=== PATIENT | male | born 1965 | race Caucasian/White ===

== ENCOUNTER 2017-01-13 17:20 | Emergency (ER) | payer MEDICARE ==
--- NOTE | 2017-01-13 18:59 | Emergency Department Record ---
History of Present Illness - General Mode of Arrival: Ambulatory - History of Present Illness Onset/Timin -: Hour(s) Place: Home Context: Sharp object use Associated Symptoms: None Treatments Prior to Arrival: Bandage - Related Data Hx Tetanus Toxoid Vaccination: Yes Year of Tetanus Vaccination: unsure <Seng Hughes - Last Filed: 01/13/17 18:58> - General Source: Patient Mode of Arrival: Ambulatory Limitations: No limitations - History of Present Illness Initial Commments: cut on something in garage Onset/Timin -: Hour(s) Extremity Location: Right: Hand Context: Accidental Associated Symptoms: None Treatments Prior to Arrival: Bandage - [place] Coma Scale Eye Response: (4) Open spontaneously <Lorna Lu - Last Filed: 01/13/17 19:53> - General Chief Complaint: Laceration(s) Stated Complaint: LACERATION ON RT HAND MIDDLE FINGER Time Seen by Provider: 01/13/17 18:58 Travel Screening - Travel/Exposure Within Last 30 Days Have you traveled within the last 30 days?: No <Seng Hughes - Last Filed: 01/13/17 18:58> Review of Systems Reviewed: No additional complaints except as noted below Constitutional: Reports: As per HPI. Denies: Chills, Fever, Malaise, Night sweats, Weakness, Weight change Eyes: Reports: As per HPI. Denies: Eye discharge, Eye pain, Photophobia, Vision change ENT: Reports: As per HPI. Denies: Congestion, Dental pain, Ear pain, Epistaxis , Hearing loss, Throat pain Respiratory: Reports: As per HPI. Denies: Cough, Dyspnea, Hemoptysis, Stridor, Wheezes Cardiovascular: Reports: As per HPI. Denies: Arrhythmia, Chest pain, Dyspnea on exertion, Edema, Murmurs, Orthopnea, Palpitations, Paroxysmal nocturnal dyspnea, Rheumatic Fever, Syncope Endocrine: Reports: As per HPI. Denies: Fatigue, Heat or cold intolerance, Polydipsia, Polyuria Gastrointestinal: Reports: As per HPI. Denies: Abdominal pain, Constipation, Diarrhea, Hematemesis, Hematochezia, Melena, Nausea, Vomiting Genitourinary: Reports: As per HPI. Denies: Dysuria, Frequency, Hematuria, Incontinence, Retention, Testicular pain, Testicular mass, Urgency Musculoskeletal: Reports: As per HPI. Denies: Arthralgia, Back pain, Gout, Joint swelling, Myalgia, Neck pain Skin: Reports: As per HPI. Denies: Bruising, Change in color, Change in hair/ nails, Lesions, Pruritus, Rash Neurological: Reports: As per HPI. Denies: Abnormal gait, Confusion, Headache, Numbness, Paresthesias, Seizure, Tingling, Tremors, Vertigo, Weakness Psychiatric: Reports: As per HPI. Denies: Anxiety, Auditory hallucinations, Depression, Homicidal thoughts, Suicidal thoughts, Visual hallucinations Hematological/Lymphatic: Reports: As per HPI. Denies: Anemia, Blood Clots, Easy bleeding, Easy bruising, Swollen glands <Lorna Lu - Last Filed: 01/13/17 19:53> Past Medical History - SOCIAL HISTORY Smoking Status: Never smoker Alcohol Use: Occassional Drug Use: None - RESPIRATORY Hx Respiratory Disorders: No - CARDIOVASCULAR Hx Cardio Disorders: Yes Hx Hypertension: Yes - NEURO Hx Neuro Disorders: No - GI Hx GI Disorders: No - Hx Genitourinary Disorders: No - ENDOCRINE Hx Endocrine Disorders: No - MUSCULOSKELETAL Hx Musculoskeletal Disorders: Yes - PSYCH Hx Psych Problems: No - HEMATOLOGY/ONCOLOGY Hx Hematology/Oncology Disorders: No <Seng Hughes A - Last Filed: 01/13/17 18:58> Family Medical History Any Significant Family History?: No <Seng Hughes - Last Filed: 01/13/17 18:58> Any Significant Family History?: No <Lorna Lu - Last Filed: 01/13/17 19:53> Physical Exam - General General Appearance: Alert, Oriented x3, Cooperative, No acute distress - Head Head exam: Normal inspection - Eye Eye exam: Normal appearance, PERRL, EOMI Pupils: Normal accommodation - ENT ENT exam: Normal exam, Mucous membranes moist, Normal external ear exam, Normal orophraynx, TM's normal bilaterally Ear exam: Normal external inspection. negative: External canal tenderness Nasal Exam: Normal inspection. negative: Discharge, Sinus tenderness Mouth exam: Normal external inspection, Tongue normal Teeth exam: Normal inspection. negative: Dental caries Throat exam: Normal inspection. negative: Tonsillar erythema, Tonsillar exudate - Neck Neck exam: Normal inspection, Full ROM. negative: Tenderness - Respiratory Respiratory exam: Normal lung sounds bilaterally. negative: Respiratory distress - Cardiovascular Cardiovascular Exam: Regular rate, Normal rhythm, Normal heart sounds - GI/Abdominal GI/Abdominal exam: Soft, Normal bowel sounds. negative: Tenderness - Rectal Rectal exam: Deferred - exam: Deferred - Extremities Extremities exam: Normal inspection, Full ROM, Normal capillary refill. negative: Tenderness Image of Hand: 1 - 2cm lac - Back Back exam: Reports: Normal inspection, Full ROM. Denies: Muscle spasm, Rash noted, Tenderness - Neurological Neurological exam: Alert, CN II-XII intact, Normal gait, Oriented X3 - Psychiatric Psychiatric exam: Normal affect, Normal mood - Skin Skin exam: Dry, Intact, Normal color, Warm <Lorna Lu - Last Filed: 01/13/17 19:53> Course Vital Signs 01/13/17 18:51 Temperature 98.3 F Pulse Rate 100 H Respiratory 18 Rate Blood Pressure 165/136 Pulse Ox 98 <Seng Hughes - Last Filed: 01/13/17 18:58> Vital Signs 01/13/17 18:51 Temperature 98.3 F Pulse Rate 100 H Respiratory 18 Rate Blood Pressure 165/136 Pulse Ox 98 <Lorna Lu - Last Filed: 01/13/17 19:53> Disposition <Seng Hughes - Last Filed: 01/13/17 18:58> Disposition: Discharge <Lorna Lu - Last Filed: 01/13/17 19:53> Clinical Impression: Laceration of finger Qualifiers: Encounter type: initial encounter Qualified Code(s): S61.219A - Laceration without foreign body of unspecified finger without damage to nail, initial encounter Hypertension Qualifiers: Hypertension type: essential hypertension Qualified Code(s): I10 - Essential ( primary) hypertension Disposition: Home, Self-Care Condition: (1) Good Instructions: Laceration (ED), Suture Care (ED), Heart Healthy Diet (ED), Hypertension (ED) Additional Instructions: sutures out in 8 days. follow up with family doctor. return sooner if worse. recheck blood pressure daily for next week and keep log. Forms: Patient Portal Access
== END 2017-01-13 19:58 | disposition home or self-care (01) ==
LOC: ER 17:20
DX: S61.212A Laceration without foreign body of right middle finger without damage to nail, initial encounter (principal); I10 Essential (primary) hypertension; W45.8XXA Other foreign body or object entering through skin, initial encounter; Y92.008 Other place in unspecified non-institutional (private) residence as the place of occurrence of the external cause
CPT/HCPCS: 12001; 99283

== ENCOUNTER 2018-04-04 05:13 | Emergency (ER) | payer MEDICARE ==
--- NOTE | 2018-04-04 05:41 | Emergency Department Record ---
History of Present Illness - General Chief complaint: Lower Extremity Pain Stated complaint: TOE PAIN Time Seen by Provider: 04/04/18 05:30 Source: Patient Mode of Arrival: Ambulatory - History of Present Illness Initial comments: The patient woke up with left great toe pain yesterday morning.He denies injuring it. He states he doesn't have much feeling in his feet since his back surgery and back problems, but this does hurt quite a bit. Onset/Timin -: Days(s) Location: Left, Other Severity scale (1-10): 10 Quality: Sharp, Stabbing Consistency: Constant Improves with: Nothing Worsens with: Nothing Associated Symptoms: Denies other symptoms - Related Data Previous Rx's Medication Instructions Recorded Cephalexin [Keflex] 500 mg PO QID #40 cap 04/04/18 Hydrocodone/Acetaminophen [[place] 1 each PO RESP.Q6H #10 tablet 04/04/18 5-325 Tablet] Indomethacin [Indocin] 50 mg PO TID #21 cap 04/04/18 Allergies Allergy/AdvReac Type Severity Reaction Status Date / Time amlodipine besylate AdvReac Intermediate chest Unverified 03/31/18 11:17 [From [facility]] [facility] Travel Screening - Travel/Exposure Within Last 30 Days Have you traveled within the last 30 days?: No Review of Systems Reviewed: No additional complaints except as noted below Constitutional: Reports: As per HPI. Denies: Chills, Fever, Malaise, Night sweats, Weakness, Weight change Eyes: Reports: As per HPI. Denies: Eye discharge, Eye pain, Photophobia, Vision change ENT: Reports: As per HPI. Denies: Congestion, Dental pain, Ear pain, Epistaxis , Hearing loss, Throat pain Respiratory: Reports: As per HPI. Denies: Cough, Dyspnea, Hemoptysis, Stridor, Wheezes Cardiovascular: Reports: As per HPI. Denies: Arrhythmia, Chest pain, Dyspnea on exertion, Edema, Murmurs, Orthopnea, Palpitations, Paroxysmal nocturnal dyspnea, Rheumatic Fever, Syncope Endocrine: Reports: As per HPI. Denies: Fatigue, Heat or cold intolerance, Polydipsia, Polyuria Gastrointestinal: Reports: As per HPI. Denies: Abdominal pain, Constipation, Diarrhea, Hematemesis, Hematochezia, Melena, Nausea, Vomiting Genitourinary: Reports: As per HPI. Denies: Dysuria, Frequency, Hematuria, Incontinence, Retention, Testicular pain, Testicular mass, Urgency Musculoskeletal: Reports: As per HPI. Denies: Arthralgia, Back pain, Gout, Joint swelling, Myalgia, Neck pain Skin: Reports: As per HPI. Denies: Bruising, Change in color, Change in hair/ nails, Lesions, Pruritus, Rash Neurological: Reports: As per HPI. Denies: Abnormal gait, Confusion, Headache, Numbness, Paresthesias, Seizure, Tingling, Tremors, Vertigo, Weakness Psychiatric: Reports: As per HPI. Denies: Anxiety, Auditory hallucinations, Depression, Homicidal thoughts, Suicidal thoughts, Visual hallucinations Hematological/Lymphatic: Reports: As per HPI. Denies: Anemia, Blood Clots, Easy bleeding, Easy bruising, Swollen glands Past Medical History - SOCIAL HISTORY Smoking Status: Never smoker Alcohol Use: None Drug Use: None - RESPIRATORY Hx Respiratory Disorders: No - CARDIOVASCULAR Hx Cardio Disorders: Yes Hx Hypertension: Yes - NEURO Hx Neuro Disorders: No - GI Hx GI Disorders: No - Hx Genitourinary Disorders: No - ENDOCRINE Hx Endocrine Disorders: No - MUSCULOSKELETAL Hx Musculoskeletal Disorders: Yes - PSYCH Hx Psych Problems: No - HEMATOLOGY/ONCOLOGY Hx Hematology/Oncology Disorders: No Family Medical History Any Significant Family History?: No Physical Exam - General General Appearance: Alert, Oriented x3, Cooperative, Mild distress - Head Head exam: Normal inspection - Eye Eye exam: Normal appearance, PERRL Pupils: Normal accommodation - ENT ENT exam: Normal exam, Mucous membranes moist, Normal external ear exam, Normal orophraynx, TM's normal bilaterally Ear exam: Normal external inspection. negative: External canal tenderness Nasal Exam: Normal inspection. negative: Discharge, Sinus tenderness Mouth exam: Normal external inspection, Tongue normal Teeth exam: Normal inspection. negative: Dental caries Throat exam: Normal inspection. negative: Tonsillar erythema, Tonsillar exudate - Neck Neck exam: Normal inspection, Full ROM. negative: Tenderness - Respiratory Respiratory exam: Normal lung sounds bilaterally. negative: Respiratory distress - Cardiovascular Cardiovascular Exam: Regular rate, Normal rhythm, Normal heart sounds - GI/Abdominal GI/Abdominal exam: Soft, Normal bowel sounds. negative: Tenderness - Rectal Rectal exam: Deferred - exam: Deferred - Extremities Extremities exam: Normal inspection, Full ROM, Normal capillary refill, Tenderness (left great toes with erythema, warmth and tenderness. Erythema includes a proximal lymphangits up his dorsal foot which was marked with a pen.) - Back Back exam: Reports: Normal inspection, Full ROM. Denies: Muscle spasm, Rash noted, Tenderness - Neurological Neurological exam: Alert, Normal gait, Oriented X3, Reflexes normal - Psychiatric Psychiatric exam: Normal affect, Normal mood - Skin Skin exam: Dry, Intact, Normal color, Warm Course Vital Signs 04/04/18 05:19 Temperature 98.6 F Pulse Rate [ 79 Pulse Ox Probe] Respiratory 20 Rate Blood Pressure 151/100 [Left Arm] Pulse Ox 97 - Reevaluation(s) Reevaluation #1: The patient's pain is controlled and he states he is used to chronic pain at all times due to diffuse arthritis of the spine for many years. He lives alone and is disabled. He states he will elevate his foot and take his medications as directed. He has a PCP to recheck in 12- 24 hours, and will return here if he worsens. The red line on the top of his foot he will watch and return if it goes up his leg, if he develops fevers, chills, or is in other regads worsening. 04/04/18 06:35 Medical Decision Making - Data Complexity MDM Data: Labs Ordered and/or Reviewed, X-Ray Ordered and/or Reviewed (Left foot great toe xray: no acute abnormality, minimal chronic changes to great toe) - Lab Data Result diagrams: 04/04/18 05:40 04/04/18 05:40 Disposition Disposition: Discharge Clinical Impression: Gouty arthritis of left great toe, Cellulitis of great toe, left Disposition: Home, Self-Care Condition: (2) Stable Instructions: Gout (ED), Cellulitis (ED) Additional Instructions: Take indocin with food as directed. Take keflex as directed until gone. Recheck 24 hours with PCP. Return here if infection spreads up your leg. Keflex 500 four times daily for 10 days. Indocin with food as directed. Elevate leg above heart. No to minimal ambulation. Prescriptions: Cephalexin [Keflex] 500 mg PO QID #40 cap Hydrocodone/Acetaminophen [[place] 5-325 Tablet] 1 each PO RESP.Q6H #10 tablet Indomethacin [Indocin] 50 mg PO TID #21 cap Forms: Patient Portal Access Quality - Quality Measures Quality Measures: N/A - Blood Pressure Screening Does Patient Have Any of the Following: No Blood Pressure Classification: Hypertensive Reading Systolic Measurement: 151 Diastolic Measurement: 100 Screening for High Blood Pressure: Patient Exclusion, Hx of HTN [[id number]]
[2018-04-04 05:51] LABS: BASO % 0.5 % (0-6); EOS % 1.2 % (0-6); GRAN % 58.5 % (47-80); HEMATOCRIT 43.4 % (42.0-52.0); HEMOGLOBIN 15.4 gm/dl (14.0-18.0); LYMPH % 31.1 % (16-45); MEAN CELL VOLUME 91.9 fl (81-97); MEAN CORPUSCULAR HEMOGLOBIN 32.6 pg (27-33); MEAN CORPUSCULAR HGB CONC 35.5 g/dl (32-36); MEAN PLATELET VOLUME 9.7 fl (7.4-10.4); MONO % 8.7 % (0-9); PLATELET COUNT 257 K/uL (130-400); RED BLOOD COUNT 4.72 M/uL (4.40-5.70); RED CELL DISTRIBUTION WIDTH 12.1 % (11.5-14.5); WHITE BLOOD COUNT W/O DIFF 8.5 K/uL (4.2-12.2)
[2018-04-04 05:58] LABS: BLOOD UREA NITROGEN 15 mg/dL (6-20)
[2018-04-04 05:59] LABS: CREATININE 0.8 mg/dL (0.7-1.2); EST GLOMERULAR FILTRATION RATE > 60 mL/min; TOTAL PROTEIN 7.1 g/dL (6.6-8.7)
[2018-04-04 06:01] LABS: GLUCOSE,RANDOM 125 mg/dL (74-109)
[2018-04-04 06:04] LABS: ALB/GLOB RATIO 1.5 (1.1-1.8); ALBUMIN 4.3 g/dL (4.0-5.0); ALKALINE PHOSPHATASE 58 U/L (40-129); ALT/SGPT 21 U/L (<41); AST/SGOT 19 U/L (10.0-50.0)
[2018-04-04] MEDS: INDOMETHACIN 25 MG CAPSULE PO ONE (06:19)
[2018-04-04] MEDS: CEPHALEXIN 500 MG CAPSULE PO STA (06:19)
[2018-04-04] MEDS: POTASSIUM CHLORIDE 20 MEQ TABLET PO ONE (06:19)
[2018-04-04] MEDS: HYDROCODONE/APAP 7.5/325MG TABLET PO ONE (06:49)
--- NOTE | 2018-04-05 08:25 | RADIOLOGY REPORT ---
EXAM: LEFT GREAT TOE HISTORY: PAIN. TECHNIQUE: Four views of the left great toe were obtained. Comparison: None. Encounter: Initial. FINDINGS: Negative for acute fracture or dislocation. Degenerative changes of the IP joint with bony spur formation. Mild diffuse soft tissue swelling. No soft tissue gas. IMPRESSION: NO ACUTE OSSEOUS ABNORMALITY. MILD DEGENERATIVE CHANGE. DIFFUSE SOFT TISSUE SWELLING. JOB NUMBER: [id number] MTDD
== END 2018-04-04 07:08 | disposition home or self-care (01) ==
LOC: ER 05:13
DX: L03.032 Cellulitis of left toe (principal); M10.072 Idiopathic gout, left ankle and foot; I10 Essential (primary) hypertension
CPT/HCPCS: 73660; 80053; 83605; 84550; 85025; 85651; 99283

== ENCOUNTER 2018-07-23 08:25 | Emergency (ER) | payer MEDICARE, SELFPAY ==
--- NOTE | 2018-07-23 08:49 | Emergency Department Record ---
History of Present Illness - General Chief complaint: Dental Stated complaint: DENTAL PAIN Time Seen by Provider: 07/23/18 08:43 Source: Patient Mode of Arrival: Ambulatory - History of Present Illness Initial comments: left upper one toothin front of the first molar toothache and this started 4 days and took some norco and has three left. MD complaint: Tooth pain Onset/Timin -: Days(s) - Related Data Previous Rx's Medication Instructions Recorded Indomethacin [Indocin] 50 mg PO TID #21 cap 04/04/18 Hydrocodone/Acetaminophen [[place] 1 each PO Q6HR #10 tablet 07/23/18 5-325 Tablet] Naproxen [Naprosyn] 500 mg PO BID #20 tablet 07/23/18 Penicillin V Potassium 500 mg PO QID #40 tablet 07/23/18 Allergies Allergy/AdvReac Type Severity Reaction Status Date / Time amlodipine besylate AdvReac Intermediate chest Unverified 07/23/18 08:37 [From [facility]] [facility] [facility] [place] Travel Screening - Travel/Exposure Within Last 30 Days Have you traveled within the last 30 days?: No - Travel/Exposure Within Last Year Have you traveled outside the [place] in the last year?: No - Additonal Travel Details Have you been exposed to anyone with a communicable illness?: No - Travel Symptoms Symptom Screening: None Past Medical History - SOCIAL HISTORY Smoking Status: Never smoker Alcohol Use: Rare Drug Use: None - RESPIRATORY Hx Respiratory Disorders: No - CARDIOVASCULAR Hx Cardio Disorders: Yes Hx Hypertension: Yes - NEURO Hx Neuro Disorders: No - GI Hx GI Disorders: No - Hx Genitourinary Disorders: No - ENDOCRINE Hx Endocrine Disorders: No - MUSCULOSKELETAL Hx Musculoskeletal Disorders: Yes - PSYCH Hx Psych Problems: No - HEMATOLOGY/ONCOLOGY Hx Hematology/Oncology Disorders: No Family Medical History Any Significant Family History?: No Physical Exam - General General Appearance: Alert, Oriented x3, Cooperative, No acute distress - Head Head exam: Normal inspection - Eye Eye exam: Normal appearance, PERRL Pupils: Normal accommodation - ENT ENT exam: Normal exam, Mucous membranes moist, Normal external ear exam, Normal orophraynx, TM's normal bilaterally Ear exam: Normal external inspection. negative: External canal tenderness Nasal Exam: Normal inspection. negative: Discharge, Sinus tenderness Mouth exam: Normal external inspection, Tongue normal Teeth exam: Normal inspection. negative: Dental caries Throat exam: Normal inspection. negative: Tonsillar erythema, Tonsillar exudate Image of Mouth/Teeth: 1 - toothache - Neck Neck exam: Normal inspection, Full ROM. negative: Tenderness - Respiratory Respiratory exam: Normal lung sounds bilaterally. negative: Respiratory distress - Cardiovascular Cardiovascular Exam: Regular rate, Normal rhythm, Normal heart sounds - GI/Abdominal GI/Abdominal exam: Soft, Normal bowel sounds. negative: Tenderness - Rectal Rectal exam: Deferred - exam: Deferred - Extremities Extremities exam: Normal inspection, Full ROM, Normal capillary refill. negative: Tenderness - Back Back exam: Reports: Normal inspection, Full ROM. Denies: Muscle spasm, Rash noted, Tenderness - Neurological Neurological exam: Alert, Normal gait, Oriented X3, Reflexes normal - Psychiatric Psychiatric exam: Normal affect, Normal mood - Skin Skin exam: Dry, Intact, Normal color, Warm Course Vital Signs 07/23/18 08:32 Temperature 97.8 F Pulse Rate 91 H Respiratory 16 Rate Blood Pressure 149/105 Pulse Ox 99 Disposition Clinical Impression: Toothache Disposition: Home, Self-Care Condition: (1) Good Instructions: Toothache (ED) Additional Instructions: follow up with dentist in 4 days Prescriptions: Hydrocodone/Acetaminophen [[place] 5-325 Tablet] 1 each PO Q6HR #10 tablet Naproxen [Naprosyn] 500 mg PO BID #20 tablet Penicillin V Potassium 500 mg PO QID #40 tablet Forms: Patient Portal Access Time of Disposition: 08:56 Quality - Quality Measures Quality Measures: N/A - Blood Pressure Screening Does Patient Have Any of the Following: No, Active Dx of HTN Blood Pressure Classification: Hypertensive Reading Systolic Measurement: 149 Diastolic Measurement: 105 Screening for High Blood Pressure: Patient Exclusion, Hx of HTN [G9744]
== END 2018-07-23 09:20 | disposition home or self-care (01) ==
LOC: ER 08:25
DX: K08.89 Other specified disorders of teeth and supporting structures (principal); I10 Essential (primary) hypertension
CPT/HCPCS: 99282

== ENCOUNTER 2018-12-28 05:19 | Emergency (ER) | payer MEDICARE, SELFPAY ==
[2018-12-28] MEDS ORDERED: ASPIRIN 81 MG CHEWABLE TABLET PO ONE (05:45)
[2018-12-28] MEDS ORDERED: NITROGLYCERIN 0.4MG SL TABLET #25 BTL SL ONE (05:46)
[2018-12-28] MEDS: NITROGLYCERIN 0.4MG SL TABLET #25 BTL SL PRN ×3 (05:47→05:58)
[2018-12-28 05:53] LABS: BASO % 0.4 % (0-6); EOS % 0.9 % (0-6); GRAN % 67.4 % (47-80); HEMOGLOBIN 15.7 gm/dl (14.0-18.0); LYMPH % 22.7 % (16-45); MEAN CELL VOLUME 89.6 fl (81-97); MEAN CORPUSCULAR HGB CONC 35.7 g/dl (32-36); MONO % 8.6 % (0-9); PLATELET COUNT 275 K/uL (130-400); RED BLOOD COUNT 4.91 M/uL (4.40-5.70); RED CELL DISTRIBUTION WIDTH 11.7 % (11.5-14.5); WHITE BLOOD COUNT W/O DIFF 10.3 K/uL (4.2-12.2)
[2018-12-28 06:06] LABS: BLOOD UREA NITROGEN 14 mg/dL (6-20); EST GLOMERULAR FILTRATION RATE > 60 mL/min
[2018-12-28 06:07] LABS: TOTAL PROTEIN 7.8 g/dL (6.6-8.7)
[2018-12-28 06:09] LABS: GLUCOSE,RANDOM 138 mg/dL (74-109)
[2018-12-28 06:11] LABS: ALT/SGPT 39 U/L (<41); AST/SGOT 28 U/L (10.0-50.0)
[2018-12-28 06:12] LABS: ALB/GLOB RATIO 1.3 (1.1-1.8); ALBUMIN 4.4 g/dL (4.0-5.0); ALKALINE PHOSPHATASE 66 U/L (40-129); CREATINE PHOSPHOKINASE 125 U/L (39-308)
[2018-12-28 06:15] LABS: CKMB 1.7 ng/mL (<6.73); NTpro B-NATRIURETIC PEPTIDE 58.08 pg/mL (<125)
--- NOTE | 2018-12-28 06:15 | Emergency Department Record ---
History of Present Illness - General Source: Patient Mode of Arrival: Ambulatory Limitations: No limitations - History of Present Illness Initial Comments: pt feels like an elephant is sitting on his chest. he has had bronchitis lately that has been getting better but he has had discomfort in his chest for 3 days that has interfered with his sleep and then he started feeling like an elephant was sitting on his chest this morning while in bed. he has chronic back problems. this discomfort is different then anything he has had. he had no nausea, no radiation. he has stopped taking a lot of his meds inc his statin and vit d because he cant afford them Onset/Timin -: Days(s) Onset: During rest Pain Location: Substernal Quality: Aching Consistency: Constant Improves With: Nothing Worsens With: Nothing Anginal Symptoms: Dyspnea Other Symptoms: Cough Treatments Prior to Arrival: None <Lorna Lu - Last Filed: 12/28/18 06:59> <Seng Parkinson - Last Filed: 12/28/18 11:14> - General Chief Complaint: Chest Pain Stated Complaint: CHEST PRESSURE Time Seen by Provider: 12/28/18 05:36 - Related Data Home Medications Medication Instructions Recorded Confirmed Last Taken Hydrochlorothiazide [Hctz] 25 mg PO DAILY 12/28/18 12/28/18 Unknown Metoprolol Tartrate 25 mg PO DAILY 12/28/18 12/28/18 Unknown Allergies Allergy/AdvReac Type Severity Reaction Status Date / Time amlodipine besylate AdvReac Intermediate chest Unverified 08/25/18 13:26 [From [facility]] [facility] Travel Screening - Travel/Exposure Within Last 30 Days Have you traveled within the last 30 days?: No - Travel Symptoms Symptom Screening: None <Lorna Lu - Last Filed: 12/28/18 06:59> Review of Systems Reviewed: No additional complaints except as noted below Constitutional: Reports: As per HPI. Denies: Chills, Fever, Malaise, Night sweats, Weakness, Weight change Eyes: Reports: As per HPI. Denies: Eye discharge, Eye pain, Photophobia, Vision change ENT: Reports: As per HPI. Denies: Congestion, Dental pain, Ear pain, Epistaxis , Hearing loss, Throat pain Respiratory: Reports: As per HPI, Cough. Denies: Dyspnea, Hemoptysis, Stridor, Wheezes Cardiovascular: Reports: As per HPI, Chest pain. Denies: Arrhythmia, Dyspnea on exertion, Edema, Murmurs, Orthopnea, Palpitations, Paroxysmal nocturnal dyspnea, Rheumatic Fever, Syncope Endocrine: Reports: As per HPI. Denies: Fatigue, Heat or cold intolerance, Polydipsia, Polyuria Gastrointestinal: Reports: As per HPI. Denies: Abdominal pain, Constipation, Diarrhea, Hematemesis, Hematochezia, Melena, Nausea, Vomiting Genitourinary: Reports: As per HPI. Denies: Dysuria, Frequency, Hematuria, Incontinence, Retention, Testicular pain, Testicular mass, Urgency Musculoskeletal: Reports: As per HPI. Denies: Arthralgia, Back pain, Gout, Joint swelling, Myalgia, Neck pain Skin: Reports: As per HPI. Denies: Bruising, Change in color, Change in hair/ nails, Lesions, Pruritus, Rash Neurological: Reports: As per HPI. Denies: Abnormal gait, Confusion, Headache, Numbness, Paresthesias, Seizure, Tingling, Tremors, Vertigo, Weakness Psychiatric: Reports: As per HPI. Denies: Anxiety, Auditory hallucinations, Depression, Homicidal thoughts, Suicidal thoughts, Visual hallucinations Hematological/Lymphatic: Reports: As per HPI. Denies: Anemia, Blood Clots, Easy bleeding, Easy bruising, Swollen glands <Lorna Lu - Last Filed: 12/28/18 06:59> Past Medical History - SOCIAL HISTORY Smoking Status: Never smoker Alcohol Use: None Drug Use: None - RESPIRATORY Hx Respiratory Disorders: No - CARDIOVASCULAR Hx Cardio Disorders: Yes Hx Hypertension: Yes - NEURO Hx Neuro Disorders: No - GI Hx GI Disorders: No - Hx Genitourinary Disorders: No - ENDOCRINE Hx Endocrine Disorders: No - MUSCULOSKELETAL Hx Musculoskeletal Disorders: Yes - PSYCH Hx Psych Problems: No - HEMATOLOGY/ONCOLOGY Hx Hematology/Oncology Disorders: No <Lorna Lu - Last Filed: 12/28/18 06:59> Family Medical History Any Significant Family History?: Yes <Lorna Lu - Last Filed: 12/28/18 06:59> Physical Exam - General General Appearance: Alert, Oriented x3, Cooperative, Mild distress - Head Head exam: Normal inspection - Eye Eye exam: Normal appearance, PERRL, EOMI Pupils: Normal accommodation - ENT ENT exam: Normal exam, Mucous membranes moist, Normal external ear exam, Normal orophraynx Ear exam: Normal external inspection. negative: External canal tenderness Nasal Exam: Normal inspection. negative: Discharge, Sinus tenderness Mouth exam: Normal external inspection, Tongue normal Teeth exam: Normal inspection. negative: Dental caries Throat exam: Normal inspection. negative: Tonsillar erythema, Tonsillar exudate - Neck Neck exam: Normal inspection, Full ROM. negative: Tenderness - Respiratory Respiratory exam: Normal lung sounds bilaterally. negative: Respiratory distress - Cardiovascular Cardiovascular Exam: Regular rate, Normal rhythm, Normal heart sounds - GI/Abdominal GI/Abdominal exam: Soft, Normal bowel sounds. negative: Tenderness - Rectal Rectal exam: Deferred - exam: Deferred - Extremities Extremities exam: Normal inspection, Full ROM, Normal capillary refill. negative: Tenderness - Back Back exam: Reports: Normal inspection, Full ROM. Denies: Muscle spasm, Rash noted, Tenderness - Neurological Neurological exam: Alert, CN II-XII intact, Normal gait, Oriented X3 - Psychiatric Psychiatric exam: Normal affect, Normal mood - Skin Skin exam: Dry, Intact, Normal color, Warm <Lorna Lu - Last Filed: 12/28/18 06:59> Course Vital Signs 12/28/18 05:24 Temperature 98 F Pulse Rate [ 90 Soil Science Professor ] Respiratory 24 Rate Blood Pressure 170/109 [Left Arm] Pulse Ox 96 - Reevaluation(s) Reevaluation #1: 12/28/18 06:18 ntg improved cp from a 05/27 to 11/27 Reevaluation #2: 12/28/18 06:59 care being turned over to dr parkinson <Lorna Lu - Last Filed: 12/28/18 06:59> Vital Signs 12/28/18 12/28/18 12/28/18 05:24 05:50 05:55 Temperature 98 F Pulse Rate [ 90 112 H 106 H Soil Science Professor ] Respiratory 24 16 16 Rate Blood Pressure 170/109 [Left Arm] Blood Pressure 137/112 116/68 [Right Arm] Pulse Ox 96 92 L 95 12/28/18 12/28/18 12/28/18 06:00 06:54 09:18 Temperature Pulse Rate [ 75 67 59 L Soil Science Professor ] Respiratory 16 20 18 Rate Blood Pressure 147/96 [Left Arm] Blood Pressure 100/57 147/96 132/81 [Right Arm] Pulse Ox 94 L 98 97 <Seng Parkinson - Last Filed: 12/28/18 11:14> Medical Decision Making - Lab Data Result diagrams: 12/28/18 05:28 12/28/18 05:28 <Lorna Lu - Last Filed: 12/28/18 06:59> - Lab Data Result diagrams: 12/28/18 05:28 12/28/18 05:28 Lab Results 12/28/18 12/28/18 12/28/18 Range/Units 05:28 05:28 05:28 WBC 10.3 (4.2-12.2) K/uL RBC 4.91 (4.40-5.70) M/uL Hgb 15.7 (14.0-18.0) gm/dl Hct 44.0 (42.0-52.0) % MCV 89.6 (81-97) fl MCH 32.0 (27-33) pg MCHC 35.7 (32-36) g/dl RDW 11.7 (11.5-14.5) % Plt Count 275 (130-400) K/uL MPV 10.0 (7.4-10.4) fl Gran % 67.4 (47-80) % Lymphocytes % 22.7 (16-45) % Monocytes % 8.6 (0-9) % Eosinophils % 0.9 (0-6) % Basophils % 0.4 (0-6) % D-Dimer < 0.19 (0-0.59) mg/L FEU Sodium 137 (136-145) mmol/L Potassium 3.2 L (3.4-4.5) mmol/L Chloride 94 L (98-107) mmol/L Carbon Dioxide 26.0 (22-29) mmol/L Anion Gap 17.0 H (7-16) BUN 14 (6-20) mg/dL Creatinine 1.0 (0.7-1.2) mg/dL Estimated GFR > 60 mL/min Random Glucose 138 H (74-109) mg/dL Calcium 10.0 (8.6-10.0) mg/dL Total Bilirubin 0.50 (0.2-1.0) mg/dL AST 28 (10.0-50.0) U/L ALT 39 (<41) U/L Alkaline Phosphatase 66 (40-129) U/L Creatine Kinase 125 (39-308) U/L CK-MB (CK-2) 1.7 (<6.73) ng/mL Troponin T < 0.010 (0-0.010) ng/mL NT-Pro-B Natriuret Pep 58.08 (<125) pg/mL Total Protein 7.8 (6.6-8.7) g/dL Albumin 4.4 (4.0-5.0) g/dL Globulin 3.4 (1.4-4.8) gm/dL Albumin/Globulin Ratio 1.3 (1.1-1.8) 12/28/18 Range/Units 08:53 WBC (4.2-12.2) K/uL RBC (4.40-5.70) M/uL Hgb (14.0-18.0) gm/dl Hct (42.0-52.0) % MCV (81-97) fl MCH (27-33) pg MCHC (32-36) g/dl RDW (11.5-14.5) % Plt Count (130-400) K/uL MPV (7.4-10.4) fl Gran % (47-80) % Lymphocytes % (16-45) % Monocytes % (0-9) % Eosinophils % (0-6) % Basophils % (0-6) % D-Dimer (0-0.59) mg/L FEU Sodium (136-145) mmol/L Potassium (3.4-4.5) mmol/L Chloride (98-107) mmol/L Carbon Dioxide (22-29) mmol/L Anion Gap (7-16) BUN (6-20) mg/dL Creatinine (0.7-1.2) mg/dL Estimated GFR mL/min Random Glucose (74-109) mg/dL Calcium (8.6-10.0) mg/dL Total Bilirubin (0.2-1.0) mg/dL AST (10.0-50.0) U/L ALT (<41) U/L Alkaline Phosphatase (40-129) U/L Creatine Kinase (39-308) U/L CK-MB (CK-2) (<6.73) ng/mL Troponin T < 0.010 (0-0.010) ng/mL NT-Pro-B Natriuret Pep (<125) pg/mL Total Protein (6.6-8.7) g/dL Albumin (4.0-5.0) g/dL Globulin (1.4-4.8) gm/dL Albumin/Globulin Ratio (1.1-1.8) <Seng Parkinson - Last Filed: 12/28/18 11:14> Disposition <Lorna Lu - Last Filed: 12/28/18 06:59> <Seng Parkinson - Last Filed: 12/28/18 11:14> Clinical Impression: Chest pain Qualifiers: Chest pain type: unspecified Qualified Code(s): R07.9 - Chest pain, unspecified Forms: Patient Portal Access Quality - Blood Pressure Screening Does Patient Have Any of the Following: No Blood Pressure Classification: Hypertensive Reading Systolic Measurement: 147 Diastolic Measurement: 96 <Lorna Lu - Last Filed: 12/28/18 06:59> - Blood Pressure Screening Does Patient Have Any of the Following: No Blood Pressure Classification: Pre-Hypertensive BP Reading Systolic Measurement: 132 Diastolic Measurement: 81 Screening for High Blood Pressure: < Pre-Hypertensive BP, F/U Documented > [ G8950] <Seng Parkinson - Last Filed: 12/28/18 11:14>
[2018-12-28] MEDS ORDERED: POTASSIUM CHLORIDE 20 MEQ TABLET PO ONE (06:21)
--- NOTE | 2018-12-28 07:54 | Emergency Department Record ---
History of Present Illness - General Chief Complaint: Chest Pain Stated Complaint: CHEST PRESSURE Time Seen by Provider: 12/28/18 05:36 Source: Patient Mode of Arrival: Ambulatory Limitations: No limitations - History of Present Illness Initial Comments: Patient seen by Dr. Lu initially and he had severe bronchitis 2 weeks ago and that is getting better and 4 days ago developed chest pressure and and back pain and he has chronic low back pain. Currently his pain is a 5/10 and he had three nitro's which helped his chest pain and no diaphoresis and admits nausea and acid reflux. Onset/Timin -: Days(s) Onset: During rest Pain Location: Substernal Quality: Aching Consistency: Constant Improves With: Nothing Worsens With: Nothing Context: New medications Anginal Symptoms: Dyspnea Other Symptoms: Cough Treatments Prior to Arrival: None - Related Data Home Medications Medication Instructions Recorded Confirmed Last Taken Hydrochlorothiazide [Hctz] 25 mg PO DAILY 12/28/18 12/28/18 Unknown Metoprolol Tartrate 25 mg PO DAILY 12/28/18 12/28/18 Unknown Previous Rx's Medication Instructions Recorded Omeprazole 20 mg PO DAILY #30 12/28/18 Allergies Allergy/AdvReac Type Severity Reaction Status Date / Time amlodipine besylate AdvReac Intermediate chest Unverified 08/25/18 13:26 [From [facility]] [facility] Travel Screening - Travel/Exposure Within Last 30 Days Have you traveled within the last 30 days?: No - Travel Symptoms Symptom Screening: None Review of Systems Constitutional: Reports: As per HPI. Denies: Chills, Fever, Malaise, Night sweats, Weakness, Weight change Eyes: Reports: As per HPI. Denies: Eye discharge, Eye pain, Photophobia, Vision change ENT: Reports: As per HPI. Denies: Congestion, Dental pain, Ear pain, Epistaxis , Hearing loss, Throat pain Respiratory: Reports: As per HPI, Cough. Denies: Dyspnea, Hemoptysis, Stridor, Wheezes Cardiovascular: Reports: As per HPI, Chest pain. Denies: Arrhythmia, Dyspnea on exertion, Edema, Murmurs, Orthopnea, Palpitations, Paroxysmal nocturnal dyspnea, Rheumatic Fever, Syncope Endocrine: Reports: As per HPI. Denies: Fatigue, Heat or cold intolerance, Polydipsia, Polyuria Gastrointestinal: Reports: As per HPI, Abdominal pain (epigastric pain on palpation). Denies: Constipation, Diarrhea, Hematemesis, Hematochezia, Melena, Nausea, Vomiting Genitourinary: Reports: As per HPI. Denies: Dysuria, Frequency, Hematuria, Incontinence, Retention, Testicular pain, Testicular mass, Urgency Musculoskeletal: Reports: As per HPI. Denies: Arthralgia, Back pain, Gout, Joint swelling, Myalgia, Neck pain Skin: Reports: As per HPI. Denies: Bruising, Change in color, Change in hair/ nails, Lesions, Pruritus, Rash Neurological: Reports: As per HPI. Denies: Abnormal gait, Confusion, Headache, Numbness, Paresthesias, Seizure, Tingling, Tremors, Vertigo, Weakness Psychiatric: Reports: As per HPI. Denies: Anxiety, Auditory hallucinations, Depression, Homicidal thoughts, Suicidal thoughts, Visual hallucinations Hematological/Lymphatic: Reports: As per HPI. Denies: Anemia, Blood Clots, Easy bleeding, Easy bruising, Swollen glands Past Medical History - SOCIAL HISTORY Smoking Status: Never smoker Alcohol Use: None Drug Use: None - RESPIRATORY Hx Respiratory Disorders: No - CARDIOVASCULAR Hx Cardio Disorders: Yes Hx Hypertension: Yes - NEURO Hx Neuro Disorders: No - GI Hx GI Disorders: No - Hx Genitourinary Disorders: No - ENDOCRINE Hx Endocrine Disorders: No - MUSCULOSKELETAL Hx Musculoskeletal Disorders: Yes - PSYCH Hx Psych Problems: No - HEMATOLOGY/ONCOLOGY Hx Hematology/Oncology Disorders: No Family Medical History Any Significant Family History?: Yes Physical Exam - General General Appearance: Alert, Oriented x3, Cooperative, No acute distress Limitations: No limitations - Head Head exam: Normal inspection - Eye Eye exam: Normal appearance, PERRL Pupils: Normal accommodation - ENT ENT exam: Normal exam, Mucous membranes moist, Normal external ear exam, Normal orophraynx, TM's normal bilaterally Ear exam: Normal external inspection. negative: External canal tenderness Nasal Exam: Normal inspection. negative: Discharge, Sinus tenderness Mouth exam: Normal external inspection, Tongue normal Teeth exam: Normal inspection. negative: Dental caries Throat exam: Normal inspection. negative: Tonsillar erythema, Tonsillar exudate - Neck Neck exam: Normal inspection, Full ROM. negative: Tenderness - Respiratory Respiratory exam: Normal lung sounds bilaterally. negative: Respiratory distress - Cardiovascular Cardiovascular Exam: Regular rate, Normal rhythm, Normal heart sounds - GI/Abdominal GI/Abdominal exam: Soft, Normal bowel sounds. negative: Tenderness - Rectal Rectal exam: Deferred - exam: Deferred - Extremities Extremities exam: Normal inspection, Full ROM, Normal capillary refill. negative: Tenderness - Back Back exam: Reports: Normal inspection, Full ROM. Denies: Muscle spasm, Rash noted, Tenderness - Neurological Neurological exam: Alert, Normal gait, Oriented X3, Reflexes normal - Psychiatric Psychiatric exam: Normal affect, Normal mood - Skin Skin exam: Dry, Intact, Normal color, Warm Course Vital Signs 12/28/18 12/28/18 12/28/18 05:24 05:50 05:55 Temperature 98 F Pulse Rate [ 90 112 H 106 H Medical Sales Associate ] Respiratory 24 16 16 Rate Blood Pressure 170/109 [Left Arm] Blood Pressure 137/112 116/68 [Right Arm] Pulse Ox 96 92 L 95 12/28/18 12/28/18 06:00 06:54 Temperature Pulse Rate [ 75 67 Medical Sales Associate ] Respiratory 16 20 Rate Blood Pressure 147/96 [Left Arm] Blood Pressure 100/57 147/96 [Right Arm] Pulse Ox 94 L 98 - Reevaluation(s) Reevaluation #1: repeat the trop T at 8:30 and will cardiolgy than. 12/28/18 07:55 Reevaluation #2: Patient is feeling better , he was sleeping on the chart and now feels better. second troponin negative and will call Dr. Kimbrough 12/28/18 09:44 Reevaluation #3: discussed case with Dr. Kimbrough and will set up a outpatient eli scan stress test patient unable to walk on a stress test because of his chronic back pain. Also consult with Dr. Aishwarya Villafana tomorrow 12/28/18 11:14 Medical Decision Making - Data Complexity MDM Data: Labs Ordered and/or Reviewed (trop times two negative), X-Ray Ordered and/or Reviewed (chest xray negative), EKG Ordered and/or Reviewed (No acute changes) - Lab Data Result diagrams: 12/28/18 05:28 12/28/18 05:28 Lab Results 12/28/18 12/28/18 12/28/18 Range/Units 05:28 05:28 05:28 WBC 10.3 (4.2-12.2) K/uL RBC 4.91 (4.40-5.70) M/uL Hgb 15.7 (14.0-18.0) gm/dl Hct 44.0 (42.0-52.0) % MCV 89.6 (81-97) fl MCH 32.0 (27-33) pg MCHC 35.7 (32-36) g/dl RDW 11.7 (11.5-14.5) % Plt Count 275 (130-400) K/uL MPV 10.0 (7.4-10.4) fl Gran % 67.4 (47-80) % Lymphocytes % 22.7 (16-45) % Monocytes % 8.6 (0-9) % Eosinophils % 0.9 (0-6) % Basophils % 0.4 (0-6) % D-Dimer < 0.19 (0-0.59) mg/L FEU Sodium 137 (136-145) mmol/L Potassium 3.2 L (3.4-4.5) mmol/L Chloride 94 L (98-107) mmol/L Carbon Dioxide 26.0 (22-29) mmol/L Anion Gap 17.0 H (7-16) BUN 14 (6-20) mg/dL Creatinine 1.0 (0.7-1.2) mg/dL Estimated GFR > 60 mL/min Random Glucose 138 H (74-109) mg/dL Calcium 10.0 (8.6-10.0) mg/dL Total Bilirubin 0.50 (0.2-1.0) mg/dL AST 28 (10.0-50.0) U/L ALT 39 (<41) U/L Alkaline Phosphatase 66 (40-129) U/L Creatine Kinase 125 (39-308) U/L CK-MB (CK-2) 1.7 (<6.73) ng/mL Troponin T < 0.010 (0-0.010) ng/mL NT-Pro-B Natriuret Pep 58.08 (<125) pg/mL Total Protein 7.8 (6.6-8.7) g/dL Albumin 4.4 (4.0-5.0) g/dL Globulin 3.4 (1.4-4.8) gm/dL Albumin/Globulin Ratio 1.3 (1.1-1.8) Disposition Clinical Impression: Chest pain Qualifiers: Chest pain type: unspecified Qualified Code(s): R07.9 - Chest pain, unspecified GERD (gastroesophageal reflux disease) Qualifiers: Esophagitis presence: with esophagitis Qualified Code(s): K21.0 - Gastro- esophageal reflux disease with esophagitis Hypertension Qualifiers: Hypertension type: essential hypertension Qualified Code(s): I10 - Essential ( primary) hypertension Back pain Qualifiers: Back pain location: low back pain Chronicity: chronic Back pain laterality: bilateral Sciatica presence: without sciatica Qualified Code(s): M54.5 - Low back pain Condition: (1) Good Additional Instructions: follow up tomorrow for a lizbet tomorrow outpatient and than to see Dr. Aishwarya Villafana use mylanta 30 ml after meals and at bedtime Prescriptions: Omeprazole 20 mg PO DAILY #30 cap.dr Forms: Patient Portal Access Time of Disposition: 11:26 Quality - Quality Measures Quality Measures: N/A - Blood Pressure Screening Does Patient Have Any of the Following: No, Active Dx of HTN Blood Pressure Classification: Pre-Hypertensive BP Reading Systolic Measurement: 132 Diastolic Measurement: 81 Screening for High Blood Pressure: Patient Exclusion, Hx of HTN [G9744]
[2018-12-28] MEDS ORDERED: AL HYDROX/MAG HYDROX 30ML UD PO ONE (11:19)
[2018-12-28] MEDS ORDERED: PANTOPRAZOLE SODIUM 40 MG TABLET PO ONE (11:19)
--- NOTE | 2018-12-30 16:01 | RADIOLOGY REPORT ---
DATE: 12/28/2018 at 6:25 a.m. EXAM: TWO-VIEW CHEST. HISTORY: Chest pressure and dry cough. Sharp pain between the shoulder blades for the past two days. TECHNIQUE: PA and lateral upright views of the chest were obtained. COMPARISON: None. ENCOUNTER: Not applicable. FINDINGS: The heart, mediastinum, and pulmonary vasculature are normal. The lungs are clear. There is no pneumothorax or effusion. There are minor degenerative changes within the thoracic spine. No acute osseous abnormalities are identified. IMPRESSION: NO ACUTE CHEST PATHOLOGY. Job Number: [id number] [facility]
== END 2018-12-28 11:48 | disposition home or self-care (01) ==
LOC: ER 05:19
DX: K21.0 Gastro-esophageal reflux disease with esophagitis (principal); R07.89 Other chest pain; R05 Cough; M54.5 Low back pain; I10 Essential (primary) hypertension
CPT/HCPCS: 71046; 80053; 82550; 82553; 83880; 84484; 85025; 85379; 93005; 93010; 99284